=== PATIENT | female | born 1990 | race Caucasian/White ===

== ENCOUNTER 2016-06-24 14:29 | Outpatient (CLI) | payer MEDICAID ==
[2016-06-24 15:14] LABS: APPEARANCE,URINE CLEAR; BILIRUBIN,URINE NEGATIVE (NEGATIVE); GLUCOSE, URINE NEGATIVE (NEGATIVE); KETONES,URINE NEGATIVE (NEGATIVE); LEUKOCYTE ESTERASE,URINE NEGATIVE (NEGATIVE); NITRITE,URINE NEGATIVE (NEGATIVE); PROTEIN,URINE 30 mg/dL (NEGATIVE); URINE SPECIFIC GRAVITY 1.019; UROBILINOGEN,URINE NEGATIVE mg/dL (<2.0)
--- NOTE | 2016-06-24 15:35 | Non Stress Test Report ---
Non Stress Test Datetime Report Generated by CPN: 06/24/2016 15:35 DEMOGRAPHIC EGA NST: 36.5 INDICATION Indication for Study: Ordered by Provider MONITORING Monitor Explained: Monitor Explained; Test Explained; Patient Verbalized Understanding Time on Monitor: 06/24/2016 14:49 Time off Monitor: 06/24/2016 15:33 NST Duration: 44 NST INTERVENTIONS NST Interventions: PO Hydration; Reposition Patient Physician Notified NST: Dr. Conley BABY A: [id number] BABY A Movement : Present Contraction Frequency : Irregular FHR Baseline : 150 Accelerations : 15X15 Decelerations : None Variability : Moderate 6-25bpm NST Review: Meets Criteria for Reactive NST NST Review and Verified By : Shoaib GOODRICH Results: Reactive NST REPORT Report Trigger: Send Report
[2016-06-24 15:39] LABS: URINE BARBITURATES SCREEN NEGATIVE; URINE METHADONE SCREEN NEGATIVE; URINE OPIATES LOW NEGATIVE; URINE PHENCYCLIDINE SCREEN NEGATIVE
== END 2016-06-24 15:44 | disposition home or self-care (01) ==
LOC: LC 14:29
PROVIDERS: ATTEND Obstetrics & Gynecology
PROC: 4A1HXCZ Monitoring of Products of Conception, Cardiac Rate, External Approach (ICD-10-PCS; principal; 2016-06-24)
DX: O47.03 False labor before 37 completed weeks of gestation, third trimester (principal); Z3A.36 36 weeks gestation of pregnancy
CPT/HCPCS: 80307; 81005

== ENCOUNTER 2016-07-11 05:03 | Inpatient (IN) | payer MEDICAID ==
[2016-07-05 11:46] LABS: APPEARANCE,URINE CLOUDY; BILIRUBIN,URINE NEGATIVE (NEGATIVE); GLUCOSE, URINE NEGATIVE (NEGATIVE); KETONES,URINE TRACE mg/dL (NEGATIVE); LEUKOCYTE ESTERASE,URINE MODERATE (NEGATIVE); NITRITE,URINE NEGATIVE (NEGATIVE); PROTEIN,URINE 30 mg/dL (NEGATIVE); URINE SPECIFIC GRAVITY 1.027; UROBILINOGEN,URINE NEGATIVE mg/dL (<2.0)
[2016-07-05 11:59] LABS: URINE BARBITURATES SCREEN NEGATIVE; URINE METHADONE SCREEN NEGATIVE; URINE OPIATES LOW NEGATIVE; URINE PHENCYCLIDINE SCREEN NEGATIVE
[2016-07-05 12:14] LABS: ABSOLUTE EOSINOPHILS # (AUTO) 0.2 10^3/uL (0.0-0.6); ABSOLUTE LYMPHOCYTES (AUTO) 1.6 10^3/uL (0.5-4.7); ABSOLUTE MONOCYTES (AUTO) 0.6 10^3/uL (0.1-1.4); ABSOLUTE NEUT (AUTO) 9.1 10^3/uL (1.7-8.2); BASOPHILS % (AUTO) 0.2 % (0-2); EOSINOPHILS % (AUTO) 1.3 % (0-6); HEMATOCRIT 36.4 % (36.0-47.0); HGB HCT DIFFERENCE -0.4; LYMPHOCYTES % (AUTO) 14.2 % (13-45); MEAN CORPUSCULAR HEMOGLOBIN 26.7 pg (27.0-33.4); MEAN CORPUSCULAR HGB CONC 32.8 g/dL (32.0-36.0); MEAN CORPUSCULAR VOLUME 81 fl (80-97); MONOCYTES % (AUTO) 4.9 % (3-13); RED BLOOD COUNT 4.48 10^6/uL (3.72-5.28); RED CELL DISTRIBUTION WIDTH 15.3 % (11.5-14.0); SEGMENTED NEUTROPHILS % (AUTO) 79.4 % (42-78); WHITE BLOOD COUNT 11.5 10^3/uL (4.0-10.5)
[~2016-07-11 05:03] MED LIST: CEFAZOLIN SODIUM 1 GM in DEXTROSE 5%-WATER 50 ML IV PRN; LACTATED RINGERS 1000 ML IV PRN; LIDOCAINE 0.5% INJ-PF (5 MG/ML) 50 ML SDV SUBCUT PRN; RINGERS SOLUTION,LACTATED 1,500 ML IV PRN
[2016-07-11] MEDS ORDERED: CEFAZOLIN INJ 1 GM VIAL ONE (05:29)
[2016-07-11] MEDS ORDERED: MIDAZOLAM 2 MG/2 ML INJ ONE ×2 (07:25→08:25)
[2016-07-11] MEDS ORDERED: EPHEDRINE SULFATE INJ 50 MG/1 ML AMPULE ONE (07:25)
[2016-07-11] MEDS ORDERED: OXYTOCIN 10 UNIT/ML VIAL ONE (07:25)
[2016-07-11] MEDS ORDERED: MORPHINE SULFATE 10 MG/ML INJ IV PRN (07:52)
[2016-07-11] MEDS ORDERED: PROMETHAZINE HCL INJ 25 MG/1 ML VIAL IV PRN ×3 (07:52→10:33)
[2016-07-11] MEDS ORDERED: FENTANYL CITRATE INJ/PF 100 MCG/2 ML AMPUL IV PRN ×3 (07:52)
[2016-07-11] MEDS ORDERED: OXYCODONE-ACETAMINOPHEN 5-325 MG TABLET PO PRN ×3 (07:52→10:33)
[2016-07-11] MEDS ORDERED: MEPERIDINE HCL/PF INJ 25 MG/1 ML DISP.SYRIN IV PRN (07:52)
[2016-07-11] MEDS ORDERED: DIPHENHYDRAMINE HCL 50 MG/ML VIAL IV PRN (07:52)
[2016-07-11] MEDS ORDERED: PROPOFOL INJ 200 MG/20 ML VIAL IV ONE ×2 (08:25→09:11)
[2016-07-11] MEDS ORDERED: KETOROLAC TROMETHAMINE INJ/PF 30 MG/1 ML SDV ONE (08:25)
[2016-07-11] MEDS ORDERED: KETAMINE HCL INJ 500 MG/10 ML VIAL ONE (08:29)
[2016-07-11] MEDS ORDERED: MORPHINE SULFATE 10 MG/ML INJ ONE (09:11)
--- NOTE | 2016-07-11 09:16 | Brief Operative Note ---
BRIEF OPERATIVE REPORT DATE OF SURGERY: 07/11/16 TIME OF SURGERY: 09:00 PREOPERATIVE DIAGNOSIS: 39 weeks, previous section, undesired future fertility POSTOPERATIVE DIAGNOSIS: same, delivered SURGEON: VINCENT GRAHAM FINDINGS: viable male ap 12/26. placenta delivered intact 3vc. normal uterus ovaries tubes COMPLICATIONS: none ESTIMATED BLOOD LOSS: 700 TISSUE REMOVED OR ALTERED: placenta. midportion bilateral fallopian tubes TECHNICAL PROCEDURE: Repeat Low Transverse Section. Bilateral Tubal Ligation by Modified Roque
--- NOTE | 2016-07-11 10:01 | L&D Flow Sheet ---
LD Flowsheet Datetime Report Generated by CPN: 07/11/2016 10:00 Datetime: 07/11/2016 09:59 Pulse: 81 (QS system process) SpO2 (%): 96 (QS system process) Datetime: 07/11/2016 09:55 NBP Sys/Digna/Mean (mmHg): 112 (QS system process) : 66 (QS system process) : 84 (QS system process) Pulse: 86 (QS system process) Datetime: 07/11/2016 09:54 Pulse: 83 (QS system process) SpO2 (%): 96 (QS system process) Datetime: 07/11/2016 09:50 NBP Sys/Digna/Mean (mmHg): 110 (QS system process) : 66 (QS system process) : 83 (QS system process) Pulse: 81 (QS system process) Datetime: 07/11/2016 09:49 Pulse: 84 (QS system process) SpO2 (%): 95 (QS system process) Datetime: 07/11/2016 09:45 NBP Sys/Digna/Mean (mmHg): 114 (QS system process) : 68 (QS system process) : 86 (QS system process) Pulse: 89 (QS system process) Datetime: 07/11/2016 09:44 Pulse: 83 (QS system process) SpO2 (%): 95 (QS system process) Datetime: 07/11/2016 09:40 NBP Sys/Digna/Mean (mmHg): 114 (QS system process) : 69 (QS system process) : 86 (QS system process) Pulse: 86 (QS system process) Datetime: 07/11/2016 09:39 Pulse: 89 (QS system process) SpO2 (%): 94 (QS system process) Datetime: 07/11/2016 09:35 NBP Sys/Digna/Mean (mmHg): 115 (QS system process) : 70 (QS system process) : 87 (QS system process) Pulse: 85 (QS system process) Datetime: 07/11/2016 09:34 Pulse: 88 (QS system process) SpO2 (%): 93 (QS system process) Datetime: 07/11/2016 09:30 NBP Sys/Digna/Mean (mmHg): 113 (QS system process) : 72 (QS system process) : 87 (QS system process) Pulse: 90 (QS system process) Datetime: 07/11/2016 09:29 Pulse: 85 (QS system process) SpO2 (%): 96 (QS system process) Datetime: 07/11/2016 09:25 NBP Sys/Digna/Mean (mmHg): 111 (QS system process) : 73 (QS system process) : 87 (QS system process) Pulse: 89 (QS system process) Respirations: 18 (Maricarmen Bellavance, RNC) Pain Assessment Comments: sleeping (Maricarmen Bellavance, RNC) Datetime: 07/11/2016 09:24 Pulse: 89 (QS system process) SpO2 (%): 94 (QS system process) Datetime: 07/11/2016 09:21 Pulse: 91 (QS system process) SpO2 (%): 94 (QS system process) Datetime: 07/11/2016 09:19 Pulse: 104 (QS system process) SpO2 (%): 97 (QS system process) Datetime: 07/11/2016 09:17 Pain Assessment Comments: patient calmer and resting/sleeping (Maricarmen Bellavance, RNC) Datetime: 07/11/2016 09:14 Pulse: 99 (QS system process) Pulse: 108 (QS system process) SpO2 (%): 96 (QS system process) SpO2 (%): 94 (QS system process) Datetime: 07/11/2016 09:12 Stage of : Recovery (Maricarmen Bellavance, RNC) Respirations: 18 (Maricarmen Bellavance, RNC) SpO2 (%): 98 (Maricarmen Bellavance, RNC) Temperature (F): 97.5 (Maricarmen Bellavance, RNC) Temperature (C): 36.4 (QS system process) Temperature Route: Oral (Maricarmen Bellavance, RNC) Pain Assessment Comments: patient crying and noncooperative 10 of morphine given iv per anesthesia (Maricarmen Bellavance, RNC) Datetime: 07/11/2016 09:10 NBP Sys/Digna/Mean (mmHg): 117 (QS system process) : 77 (QS system process) : 91 (QS system process) Pulse: 102 (QS system process) LaborFlag: Labor (QS system process) Datetime: 07/11/2016 09:09 Pulse: 104 (QS system process) Pulse: 107 (QS system process) SpO2 (%): 94 (QS system process) SpO2 (%): 93 (QS system process) LaborFlag: Labor (QS system process)
[2016-07-11] MEDS ORDERED: OXYTOCIN/NORMAL SALINE 1,000 ML IV PRN (10:33)
[2016-07-11] MEDS ORDERED: ACETAMINOPHEN 325 MG TABLET PO PRN (10:33)
[2016-07-11] MEDS ORDERED: ACETAMINOPHEN 100 ML IV PRN (10:33)
[2016-07-11] MEDS ORDERED: DIPH/PERTUSS(ACELL)/TETANUS VAC/PF 0.5 ML SYR (>=10YO) IM PRN (10:33)
[2016-07-11] MEDS ORDERED: HYDROMORPHONE HCL INJ/PF 2 MG/ML AMPULE IV PRN (10:33)
[2016-07-11] MEDS ORDERED: MEASLES,MUMPS&RUBELLA VACC/PF 0.5 ML VIAL SUBCUT PRN (10:33)
[2016-07-11] MEDS ORDERED: SIMETHICONE 80 MG TAB.CHEW PO PRN (10:33)
[2016-07-11] MEDS ORDERED: RINGERS SOLUTION,LACTATED 1,000 ML IV PRN (10:33)
[2016-07-11] MEDS ORDERED: HYDROMORPHONE HCL INJ/PF 2 MG/ML AMPULE ONE (10:50)
[2016-07-11] MEDS: CEFAZOLIN 1 GM/D5W RTU 50 ML IV SCH ×3 (12:03→23:18)
[2016-07-11] MEDS ORDERED: ONDANSETRON HCL INJ/PF 4 MG/2 ML SDV ONE (14:30)
[2016-07-11] MEDS ORDERED: LIDOCAINE 2% INJ-PF (20 MG/ML) 10 ML AMPUL ONE (14:30)
[2016-07-11] MEDS: OXYCODONE-ACETAMINOPHEN 5-325 MG TABLET PO PRN ×2 (18:09→22:43)
[2016-07-11] MEDS: DOCUSATE SODIUM 100 MG CAPSULE PO SCH (18:09)
[2016-07-11] MEDS: KETOROLAC TROMETHAMINE INJ/PF 30 MG/1 ML SDV IV SCH (18:09)
--- NOTE | 2016-07-11 19:01 | L&D Flow Sheet ---
LD Flowsheet Datetime Report Generated by CPN: 07/11/2016 19:00 Datetime: 07/11/2016 11:00 Temperature (F): 97.5 (Maricarmen Bellavance, RNC) Temperature (C): 36.4 (QS system process) Temperature Route: Oral (Maricarmen Bellavance, RNC) Datetime: 07/11/2016 10:50 NBP Sys/Digna/Mean (mmHg): 107 (QS system process) : 57 (QS system process) : 78 (QS system process) Pulse: 82 (QS system process) Respirations: 16 (Maricarmen Bellavance, RNC) Datetime: 07/11/2016 10:49 Pulse: 88 (QS system process) SpO2 (%): 97 (QS system process) Datetime: 07/11/2016 10:46 NBP Sys/Digna/Mean (mmHg): 113 (QS system process) : 70 (QS system process) : 86 (QS system process) Pulse: 83 (QS system process) Respirations: 16 (Maricarmen Bellavance, RNC) Datetime: 07/11/2016 10:44 Pulse: 92 (QS system process) SpO2 (%): 97 (QS system process) Datetime: 07/11/2016 10:40 NBP Sys/Digna/Mean (mmHg): 104 (QS system process) : 55 (QS system process) : 78 (QS system process) Pulse: 89 (QS system process) Respirations: 18 (Maricarmen Bellavance, RNC) Datetime: 07/11/2016 10:39 Pulse: 90 (QS system process) SpO2 (%): 98 (QS system process) Datetime: 07/11/2016 10:35 NBP Sys/Digna/Mean (mmHg): 111 (QS system process) : 52 (QS system process) : 75 (QS system process) Pulse: 88 (QS system process) Respirations: 16 (Maricarmen Bellavance, RNC) Datetime: 07/11/2016 10:34 Pulse: 87 (QS system process) SpO2 (%): 97 (QS system process) Datetime: 07/11/2016 10:30 NBP Sys/Digna/Mean (mmHg): 105 (QS system process) : 54 (QS system process) : 74 (QS system process) Pulse: 91 (QS system process) Respirations: 16 (Maricarmen Bellavance, RNC) Datetime: 07/11/2016 10:29 Pulse: 94 (QS system process) SpO2 (%): 97 (QS system process) Datetime: 07/11/2016 10:25 NBP Sys/Digna/Mean (mmHg): 116 (QS system process) : 73 (QS system process) : 87 (QS system process) Pulse: 100 (QS system process) Respirations: 16 (Maricarmen Bellavance, RNC) Datetime: 07/11/2016 10:24 Pulse: 104 (QS system process) SpO2 (%): 98 (QS system process) Datetime: 07/11/2016 10:21 NBP Sys/Digna/Mean (mmHg): 114 (QS system process) : 82 (QS system process) : 94 (QS system process) Pulse: 101 (QS system process) Respirations: 16 (Maricarmen Bellavance, RNC) Datetime: 07/11/2016 10:19 Pulse: 98 (QS system process) SpO2 (%): 99 (QS system process) Datetime: 07/11/2016 10:15 NBP Sys/Digna/Mean (mmHg): 115 (QS system process) : 72 (QS system process) : 89 (QS system process) Pulse: 89 (QS system process) Respirations: 16 (Maricarmen Bellavance, RNC) Pain Assessment Comments: drozhamlet No c/o (Maricarmen Bellavance, RNC) Datetime: 07/11/2016 10:14 Pulse: 81 (QS system process) SpO2 (%): 96 (QS system process) Datetime: 07/11/2016 10:11 NBP Sys/Digna/Mean (mmHg): 112 (QS system process) : 71 (QS system process) : 87 (QS system process) Pulse: 83 (QS system process) Respirations: 16 (Maricarmen Bellavance, RNC) Datetime: 07/11/2016 10:09 Pulse: 85 (QS system process) SpO2 (%): 97 (QS system process) Datetime: 07/11/2016 10:05 NBP Sys/Digna/Mean (mmHg): 115 (QS system process) : 61 (QS system process) : 83 (QS system process) Pulse: 81 (QS system process) Datetime: 07/11/2016 10:04 Pulse: 86 (QS system process) SpO2 (%): 93 (QS system process) Datetime: 07/11/2016 10:00 NBP Sys/Digna/Mean (mmHg): 112 (QS system process) : 63 (QS system process) : 81 (QS system process) Pulse: 85 (QS system process) Datetime: 07/11/2016 09:59 Pulse: 81 (QS system process) SpO2 (%): 96 (QS system process) Datetime: 07/11/2016 09:55 NBP Sys/Digna/Mean (mmHg): 112 (QS system process) : 66 (QS system process) : 84 (QS system process) Pulse: 86 (QS system process) Respirations: 18 (Maricarmen Bellavance, RNC) Datetime: 07/11/2016 09:54 Pulse: 83 (QS system process) SpO2 (%): 96 (QS system process) Datetime: 07/11/2016 09:50 NBP Sys/Digna/Mean (mmHg): 110 (QS system process) : 66 (QS system process) : 83 (QS system process) Pulse: 81 (QS system process) Respirations: 16 (Maricarmen Bellavance, RNC) Datetime: 07/11/2016 09:49 Pulse: 84 (QS system process) SpO2 (%): 95 (QS system process) Datetime: 07/11/2016 09:45 NBP Sys/Digna/Mean (mmHg): 114 (QS system process) : 68 (QS system process) : 86 (QS system process) Pulse: 89 (QS system process) Respirations: 18 (Maricarmen Bellavance, RNC) Datetime: 07/11/2016 09:44 Pulse: 83 (QS system process) SpO2 (%): 95 (QS system process) Datetime: 07/11/2016 09:40 NBP Sys/Digna/Mean (mmHg): 114 (QS system process) : 69 (QS system process) : 86 (QS system process) Pulse: 86 (QS system process) Respirations: 16 (Maricarmen Bellavance, RNC) Datetime: 07/11/2016 09:39 Pulse: 89 (QS system process) SpO2 (%): 94 (QS system process) Datetime: 07/11/2016 09:35 NBP Sys/Digna/Mean (mmHg): 115 (QS system process) : 70 (QS system process) : 87 (QS system process) Pulse: 85 (QS system process) Respirations: 16 (Maricarmen Bellavance, RNC) Datetime: 07/11/2016 09:34 Pulse: 88 (QS system process) SpO2 (%): 93 (QS system process) Datetime: 07/11/2016 09:30 NBP Sys/Digna/Mean (mmHg): 113 (QS system process) : 72 (QS system process) : 87 (QS system process) Pulse: 90 (QS system process) Respirations: 16 (Maricarmen Bellavance, RNC) Datetime: 07/11/2016 09:29 Pulse: 85 (QS system process) SpO2 (%): 96 (QS system process) Datetime: 07/11/2016 09:25 NBP Sys/Digna/Mean (mmHg): 111 (QS system process) : 73 (QS system process) : 87 (QS system process) Pulse: 89 (QS system process) Respirations: 18 (Maricarmen Bellavance, RNC) Pain Assessment Comments: sleeping (Maricarmen Bellavance, RNC) Datetime: 07/11/2016 09:24 Pulse: 89 (QS system process) SpO2 (%): 94 (QS system process) Datetime: 07/11/2016 09:21 Pulse: 91 (QS system process) SpO2 (%): 94 (QS system process) Datetime: 07/11/2016 09:19 Pulse: 104 (QS system process) SpO2 (%): 97 (QS system process) Datetime: 07/11/2016 09:17 Pain Assessment Comments: patient calmer and resting/sleeping (Maricarmen Bellavance, RNC) Datetime: 07/11/2016 09:14 Pulse: 99 (QS system process) Pulse: 108 (QS system process) SpO2 (%): 96 (QS system process) SpO2 (%): 94 (QS system process) Datetime: 07/11/2016 09:12 Stage of : Recovery (Maricarmen Bellavance, RNC) Respirations: 18 (Maricarmen Bellavance, RNC) SpO2 (%): 98 (Maricarmen Bellavance, RNC) Temperature (F): 97.5 (Maricarmen Bellavance, RNC) Temperature (C): 36.4 (QS system process) Temperature Route: Oral (Maricarmen Bellavance, RNC) Pain Assessment Comments: patient crying and noncooperative 10 of morphine given iv per anesthesia (Maricarmen Bellavance, RNC) Datetime: 07/11/2016 09:10 NBP Sys/Digna/Mean (mmHg): 117 (QS system process) : 77 (QS system process) : 91 (QS system process) Pulse: 102 (QS system process) LaborFlag: Labor (QS system process) Datetime: 07/11/2016 09:09 Pulse: 104 (QS system process) Pulse: 107 (QS system process) SpO2 (%): 94 (QS system process) SpO2 (%): 93 (QS system process) LaborFlag: Labor (QS system process)
[2016-07-12] MEDS: KETOROLAC TROMETHAMINE INJ/PF 30 MG/1 ML SDV IV SCH ×2 (04:06→09:04)
[2016-07-12] MEDS: OXYCODONE-ACETAMINOPHEN 5-325 MG TABLET PO PRN ×4 (04:31→18:48)
--- NOTE | 2016-07-12 06:01 | L&D Current Admission ---
Current Admit Datetime Report Generated by CPN: 07/12/2016 06:00 ADMISSION INFORMATION Chief Complaint: Uterine Cramping (06/24/2016 15:13:BRUNILDA Sanches
--- NOTE | 2016-07-12 06:01 | L&D General Admission ---
General Admit Datetime Report Generated by CPN: 07/12/2016 06:00 INFORMATION Patient Age: 24 (07/05/2015 16:18:QS system process) EDC: 07/17/2016 00:00 (03/09/2016 05:22:Danelle Cruz RN) : 3 (03/09/2016 05:22:Danelle Cruz RN) Para: 0 (06/24/2016 15:48:Sari Emery RN) Term: 2 (03/09/2016 05:22:Danelle Cruz RN) : 0 (03/09/2016 05:22:Danelle Cruz RN) Spontaneous Abortions: 0 (03/09/2016 05:22:Danelle Cruz RN) Induced Abortions: 0 (03/09/2016 05:22:Danelle Cruz RN) Livin (03/09/2016 05:22:Danelle Cruz RN) Cesareans: 2 (03/09/2016 05:22:Danelle Cruz RN) VBACs: 0 (03/09/2016 05:22:Danelle Cruz RN) Ectopic: 0 (03/09/2016 05:22:Danelle Cruz RN) Multiple Births: 0 (03/09/2016 05:22:Danelle Cruz RN) Baby, Number in Womb: 1 (06/24/2016 15:48:Sari Emery RN) CARE Primary Vp Analysis: [facility] (03/09/2016 05:22:Danelle Cruz RN) Month of 1st Visit: [facility] (03/09/2016 05:22:Danelle Cruz RN) Adequate Care: Yes (03/09/2016 05:22:Sari Emery RN) Prepregnancy Weight (lb): 259 (03/09/2016 05:22:Sari Emery RN) Prepregnancy Weight (kg): 117.7 (03/09/2016 05:22:QS system process) Height (in): 63 (07/11/2016 10:18:QS system process) ALLERGIES Medication Allergy: Yes (03/09/2016 05:22:Danelle Cruz RN) Medication Allergies: No Known Allergies (03/09/2016) (03/09/2016 15:53:QS system process) Latex Allergy: No Latex Allergies (03/09/2016 05:22:Danelle Cruz RN) COMMUNICATION Primary Language: Palauan (03/09/2016 05:22:Danelle Cruz RN) Medical Tx Preferred Language: Palauan (03/09/2016 05:22:Danelle Cruz RN) Communication Barrier(s): None (03/09/2016 05:22:Danelle Cruz RN) DEMOGRAPHICS Address: [address] [place] [address] [place] [address] (07/11/2016 05:04:QS system process) Zipcode: [id number] (07/11/2016 05:04:QS system process) Home (12/08/2015 12:28:QS system process) SSN: [id number] (07/05/2015 16:18:QS system process) Next of Kin Name: KENNETH PERALTA (07/05/2015 16:18:QS system process) Next of Kin (06/24/2016 14:30:QS system process) Next of Kin Relationship: SPO (07/05/2015 16:18:QS system process) Date of : 1990 (07/05/2015 16:18:QS system process) Marital Status: (07/05/2015 16:18:QS system process) Sex: Female (07/05/2015 16:18:QS system process) Race: (07/05/2015 16:18:QS system process) Ethnicity: Non- or (07/05/2015 16:18:QS system process) Episcopal: Judaism (07/05/2015 16:18:QS system process) DRUG AND ALCOHOL USE Alcohol: No (03/09/2016 05:22:Sari Emery RN) Cigarettes: Never Smoker. [id number] (03/09/2016 05:22:Sari Emery RN) Marijuana: No (03/09/2016 05:22:Sari Emery RN) Cocaine: No (03/09/2016 05:22:Sari Emery RN) Other Illicit Drugs: No (03/09/2016 05:22:Sari Emery RN) VACCINE HISTORY Influenza Vaccine: No (03/09/2016 05:22:Sari Emery RN) Pneumococcal Vaccine: No (03/09/2016 05:22:Sari Emery RN) Tetanus Vaccine: Yes (03/09/2016 05:22:Sari Emery RN) Tdap Vaccine: No (03/09/2016 05:22:Sari Emery RN) Hepatitis B Vaccine: Yes (03/09/2016 05:22:Sari Emery RN) Recording Clerk: Dr. Sharp (03/09/2016 05:22:Sari Emery RN) Feeding Preference: Breast (03/09/2016 05:22:Sari Emery RN) Benefit of Breast Feed Discussed: Yes (03/09/2016 05:22:Sari Emery RN) Circumcision: Yes (03/09/2016 05:22:Sari Emery RN) Classes Attended: No (03/09/2016 05:22:Sari Emery RN) Tubal Ligation: No (03/09/2016 05:22:Sari Emery RN) Tubal Authorization Signed: N/A (03/09/2016 05:22:Sair Emery RN) Consent: N/A (03/09/2016 05:22:Sari Emery RN) Consent Signed: N/A (03/09/2016 05:22:Sari Emery RN) Other Pain Management Plans: C/S scheduled for 07/11/16 (03/09/2016 05:22:Sari Emery RN) Plans for Labor and Delivery: Other, Specify (03/09/2016 05:22:Sari Emery RN) Other Labor and Delivery Plans: skin to skin, wishes for FOB to cut cord (03/09/2016 05:22:Sari Emery RN) Support Person: Kenneth Peralta (03/09/2016 05:22:Sari Emery RN) Support Person Relationship: (03/09/2016 05:22:Sari Emery RN) Cultural/Spritual Practice: No (03/09/2016 05:22:Sari Emery RN) Spir/Cult Dietary Needs: No (03/09/2016 05:22:Sari Emery RN) LIVING SITUATION/DISCHARGE PLAN Living Arrangements: House (03/09/2016 05:22:Sari Emery RN) Adequate Access to:: Electric; Heat; Refrigeration; Plumbing/Running water; Phone; Transportation (03/09/2016 05:22:Sari Emery RN) WIC Program: Yes (03/09/2016 05:22:Sari Emery RN) Discharge Colored Leather Setter Person: Kenneth Peralta (03/09/2016 05:22:Sari Emery RN) Person to Help after Discharge: Kenneth Fabian (03/09/2016 05:22:Sari Emery RN) Currently Using Commun Resources: Yes (03/09/2016 05:22:Sari Emery RN) Specify Current Resource Used: Medicaid (03/09/2016 05:22:Sari Emery RN) Outside Agency/Cleaning Attendant: Yes (03/09/2016 05:22:Sari Emery RN) Car Seat for Discharge: Yes (03/09/2016 05:22:Sari Emery RN) Adoption Requested: No (03/09/2016 05:22:Sari Emery RN) Pt Contact w/infant Post : N/A (03/09/2016 05:22:Sari Emery RN) LABS Blood Type: AB Positive (03/09/2016 05:22:Danelle Cruz RN) Antibody Screen: Negative (03/09/2016 05:22:Danelle Cruz RN) Rho(G) this : Not Applicable (03/09/2016 05:22:Danelle Cruz RN) Hemoglobin: 12.0 (07/05/2016 11:18:QS system process) Hematocrit: 36.4 (07/05/2016 11:18:QS system process) MCV: 81 (07/05/2016 11:18:QS system process) Group Beta Strep: positive (03/09/2016 05:22:Sari Emery RN) Gonorrhea: Negative (03/09/2016 05:22:Sari Emery RN) Chlamydia: Negative (03/09/2016 05:22:Sari Emery RN) RPR/VDRL: Nonreactive (03/09/2016 05:22:Danelle Cruz RN) HIV Results: Negative (03/09/2016 05:22:Danelle Cruz RN) Hepatitis B: Negative (03/09/2016 05:22:Danelle Cruz RN) Rubella: Immune (03/09/2016 05:22:Danelle Cruz RN) Varicella: Non Susceptible (03/09/2016 05:22:Danelle Cruz RN) OB/PREVIOUS HISTORY History Depression/PP Depression: Yes (03/09/2016 05:22:Danelle Cruz RN) Comments Obstetrical History: Hx: PPD-on Prozac x 2 mo (03/09/2016 05:22:Danelle Cruz RN) MEDICAL HISTORY Med Hx Hospitalization/Surgery: Yes (03/09/2016 05:22:Danelle Cruz RN) Details of Med/Surg Hx: Cholecystectomy, x 2 (03/09/2016 05:22:Danelle Cruz RN)
[2016-07-12] MEDS: CEFAZOLIN 1 GM/D5W RTU 50 ML IV SCH (06:20)
[2016-07-12 07:21] LABS: HEMATOCRIT 27.6 % (36.0-47.0); HEMOGLOBIN 9.1 g/dL (12.0-15.5); HGB HCT DIFFERENCE -0.3; MEAN CORPUSCULAR HEMOGLOBIN 26.7 pg (27.0-33.4); MEAN CORPUSCULAR HGB CONC 33.1 g/dL (32.0-36.0); MEAN CORPUSCULAR VOLUME 81 fl (80-97); RED BLOOD COUNT 3.41 10^6/uL (3.72-5.28); RED CELL DISTRIBUTION WIDTH 15.8 % (11.5-14.0); WHITE BLOOD COUNT 11.6 10^3/uL (4.0-10.5)
[2016-07-12] MEDS: DOCUSATE SODIUM 100 MG CAPSULE PO SCH ×2 (09:03→17:32)
[2016-07-12] MEDS: PRENATAL VITAMIN W-O CA NO5/FE FUMARATE/FA CAPSULE PO SCH (09:03)
--- NOTE | 2016-07-12 09:33 | PDOC PROGRESS REPORT ---
Subjective-OB Subjective: Post Delivery Day: 25 year old. Denies any needs at this time. Pt doing well, regular diet, voiding without difficulty, ambulatory. No flatus yet. Physical Exam (OB) Vital Signs: Temp Pulse Resp BP Pulse Ox 97.8 F 70 17 105/69 99 07/12/16 07:35 07/12/16 07:35 07/12/16 07:35 07/12/16 07:35 07/12/16 07:35 Intake & Output 07/11/16 07/12/16 07/13/16 06:59 06:59 06:59 Intake Total 2800 Output Total 2125 Balance 675 Weight 112.7 kg - PIH/Pre-Eclampsia Clonus: Negative - Dressing Removed: Yes Incision: Open, Well Approximated - Bilateral Tubal Ligation Dressing Removed: No - medipore dressing Site: Dressing - Lochia Lochia Amount: Scant < 10 ml Lochia Color: Rubra/Red - Abdomen Description: Tender, Soft, Round Hernia Present: No Fundal Description: Firm, Midline Fundal Height: u/u - u/2 Objective-Diagnostic Laboratory: 07/12/16 07:08 07/12/16 07:08 WBC 11.6 H RBC 3.41 L Hgb 9.1 L Hct 27.6 L MCV 81 MCH 26.7 L MCHC 33.1 RDW 15.8 H Plt Count 216 Assessment and Plan(PN) - Assessment and Plan (1) Obesity, Class III, BMI 40-49.9 (morbid obesity) Qualifiers: Obesity type: unspecified obesity type Qualified Code(s): E66.01 - Morbid (severe) obesity due to excess calories Is this a current diagnosis for this admission?: Yes (2) Status post repeat low transverse section Is this a current diagnosis for this admission?: Yes - Time Spent with Patient Time with patient: Less than 15 minutes Medications reviewed and adjusted accordingly: Yes - Disposition Anticipated Discharge: Home Within: within 24 hours
[2016-07-12] MEDS: IBUPROFEN 800 MG TABLET PO SCH ×2 (17:32→23:09)
[2016-07-13] MEDS: OXYCODONE-ACETAMINOPHEN 5-325 MG TABLET PO PRN (01:46)
[2016-07-13] MEDS: IBUPROFEN 800 MG TABLET PO SCH ×2 (05:06→11:34)
--- NOTE | 2016-07-13 09:49 | PDOC DISCHARGE SUMMARY ---
Final Diagnosis Discharge Date: 07/13/16 - Final Diagnosis (2) Status post repeat low transverse section Is this a current diagnosis for this admission?: Yes Discharge Data - Discharge Medication Home Medications: Pnv with Ca,No.71/Iron/FA [ Vitamin Tablet] 2 each PO DAILY 02/02/14 Ferrous Sulfate [Iron] 325 mg PO BID 06/24/16 Reason(s) for Admission: Ceasarean Section-Repeat Procedures: None Intrapartum Procedure(s): : Low Cervical, Transverse - [place] Data Baby 1 Male at 1 minute: 8 at 5 minutes: 9 Weight: 3.459 kg Home with Mother: Yes Complications: No - Diagnosis Test Laboratory: Temp Pulse Resp BP Pulse Ox 97.4 F 86 18 111/59 L 98 07/13/16 04:04 07/13/16 04:04 07/13/16 04:04 07/13/16 04:04 07/13/16 04:04 07/05/16 07/05/16 07/12/16 10:51 11:18 07:08 RBC 4.48 3.41 L Hgb 12.0 9.1 L Hct 36.4 27.6 L Urine Opiates Screen NEGATIVE - Discharge information/Instructions Discharge Activity: Activity As Tolerated, No Driving, No Lifting Over 10 Pounds , No Lifting/Push/Pulling, Pelvic Rest, No tub bath Discharge Diet: Regular Disposition: HOME, SELF-CARE Follow up with: [facility] in: 1
[2016-07-13] MEDS: DOCUSATE SODIUM 100 MG CAPSULE PO SCH (10:15)
[2016-07-13] MEDS: PRENATAL VITAMIN W-O CA NO5/FE FUMARATE/FA CAPSULE PO SCH (10:15)
[2016-07-13 10:33] VITALS: BP 112/68
== END 2016-07-13 12:15 | disposition home or self-care (01) | DRG 765 ==
LOC: 2S 05:03
PROVIDERS: ADMIT Obstetrics & Gynecology; ATTEND Obstetrics & Gynecology
PROC: 0UB70ZZ Excision of Bilateral Fallopian Tubes, Open Approach (ICD-10-PCS; 2016-07-11)
PROC: 10D00Z1 Extraction of Products of Conception, Low, Open Approach (ICD-10-PCS; principal; 2016-07-11 07:45)
DX: O34.211 Maternal care for low transverse scar from previous cesarean delivery (principal); Z68.41 Body mass index [BMI] 40.0-44.9, adult; O99.214 Obesity complicating childbirth; O99.824 Streptococcus B carrier state complicating childbirth; E66.01 Morbid (severe) obesity due to excess calories; Z3A.39 39 weeks gestation of pregnancy; Z37.0 Single live birth; Z30.2 Encounter for sterilization
CPT/HCPCS: 1961; 36415; 59025; 80307; 81001; 85025; 85027; 86850; 86900; 86901; 88302; 94799; J0690; J1170; J1885; J2250; J2270; J2405; J2550; J2590; J2704; J3490